=== PATIENT | female | born 1985 | race Asian ===

== ENCOUNTER 2020-04-15 10:47 | Outpatient (CLI) | payer OTHER ==
[2020-04-16 12:21] LABS: SARS-CoV-2 MS2 Positive; SARS-CoV-2 N Gene Negative; SARS-CoV-2 S Gene Negative; SARS-CoV-2 orf1ab Negative
== END 2020-04-15 10:48 | disposition home or self-care (01) ==
LOC: LABSCS 10:47
PROVIDERS: ATTEND Emergency Medicine
DX: Z01.812 Encounter for preprocedural laboratory examination (principal); Z11.59 Encounter for screening for other viral diseases
CPT/HCPCS: 87635; U0003

== ENCOUNTER 2020-04-19 19:15 | Inpatient (IN) | payer MEDICAID, OTHER, SELFPAY ==
[~2020-04-19 19:15] MED LIST: Bupivacaine 0.25% HCL 30 ML VIAL ONE
[2020-04-20 05:18] VITALS: BMI 28.0
[2020-04-20] MEDS: Lactated Ringer's 1,000 ML IV SCH ×3 (07:20→16:37)
[2020-04-20] MEDS ORDERED: Docusate 100 MG CAP PO PRN (07:35)
[2020-04-20] MEDS ORDERED: Diphenoxylate HCl/Atropine Tablet PO PRN (07:35)
[2020-04-20] MEDS ORDERED: Carboprost 250 MCG/ML AMP IM PRN (07:35)
[2020-04-20] MEDS ORDERED: Promethazine HCl 25 MG/ML VIAL IM PRN ×2 (07:35→15:08)
[2020-04-20] MEDS ORDERED: Lidocaine 1% (PF) 30 ML VIAL SC PRN (07:35)
[2020-04-20] MEDS ORDERED: Ondansetron PF 4 MG/2 ML Vial IVP PRN ×2 (07:35→15:08)
[2020-04-20] MEDS ORDERED: NS / Oxytocin 40 units/1000ml 1,000 ML IV PRN (07:35)
[2020-04-20] MEDS ORDERED: Methylergonovine 0.2 MG/ML VIAL IM PRN (07:35)
[2020-04-20] MEDS ORDERED: Misoprostol 200 MCG TAB PR PRN (07:35)
[2020-04-20] MEDS ORDERED: hydrALAZINE 20 MG/ML VIAL SLOW IVP PRN (07:35)
[2020-04-20] MEDS ORDERED: Ibuprofen 800 MG TAB PO PRN (07:35)
[2020-04-20] MEDS: Misoprostol 100 MCG TAB VAG SCH ×2 (08:00→16:36)
--- NOTE | 2020-04-20 08:11 | PDOC.FPROB ---
FMR OB H&P: HPI - History of Present Illness Chief Complaint: mIOL for AMA History of Present Illness: Ms. Conor Dhaliwal is a 35 yo at 39.1 wks by 12.3 wk sono presenting for a medical induction of labor due to advanced maternal age. She is feeling baby move this morning and is excited. She denies bleeding, LOF, vaginal discharge, dysuria. FMR OB H&P: Current - Care : 2 Para: 1001 Gestational age: 39.1 Due date: 04/26/2020 Dating Criteria: LMP consistent with 12.3 wk sono Course/Complications: anemia of , Hgb on 03/30: 10.1 - OB Labs Blood type: A RH: positive Antibody Screen: negative HIV: negative RPR: negative HepBsAg: negative Rubella: immune Quad screen: negative Gonorrhea: negative Chlamydia: negative Pap Smear: ASCUS 1 hour gtt: 2 hour gtt: 73, 90, 98 GBS: negative H&H: 11.1/32.9 Platelets: 214 Additional labs: COVID: neg FMR OB H&P: History - Past Medical History PMH: None - OB History OB History: Previous full term , no complications - Surgical History Sx History: None - Social History Social History: denies tobacco, alcohol, or drug abuse - Family History Family History: Non-contributory FMR OB H&P: Medications - Current Allergies/Adverse Reactions: Allergies Allergy/AdvReac Type Severity Reaction Status Date / Time No Known Allergies Allergy Verified 04/20/20 05:17 FMR OB H&P: ROS - Review of Systems General: denies: fever/chills Eyes: denies: vision changes ENT: denies: nasal congestion, rhinorrhea, sore throat Cardiovascular: denies: chest pain, palpitation, edema Respiratory: denies: cough, congestion, shortness of breath Gastrointestinal: denies: abdominal pain, nausea, vomiting, diarrhea, constipation Genitourinary (Female): reports: contractions. denies: incontinence, dysuria, polyuria, vaginal discharge, vaginal pain, vaginal bleeding Neurologic: denies: headache Integumentary: denies: rash FMR OB H&P: Vital Signs - Maternal Vital signs: BP 116/73, P 96, R 20, T 97.8 - Heart Tones Baseline: 140 Variability: moderate Acceleration: absent Deceleration: absent Category: category 1 [place] contractions every: 5-6 minutes FMR OB H&P: Physical Exam - Physical Exam General: NAD, awake, alert and oriented HEENT: normocephalic and atraumatic, PERRLA, EOMI Neck: FROM Heart: RRR, normal S1/S2, no murmurs/rubs/gallops, pulses present, no edema General: CTAB, no respiratory distress, good air movement, no rales/rhonchi, no wheezing, no retractions Abdomen: gravid Musculoskeletal: FROM in all four extremities Neurological: sensation to pain,touch and proprioception grossly normal - Pelvic Exam SVE: /3 @ 0737 Lo score: 3 Membranes: intact Presentation: vertex FMR OB H&P: A/P Discussion: Date/Time: 04/20/20 0809 35 yo presenting for mIOL 2/2 AMA at 39.1 wks by LMP c/w 12.3 wk sono. Medical Induction of Labor - AMA - 0737: 3 - 0800: cytotec placed baseline 140s, moderate variability, contractions ~5-6 min category 1 tracing baby vertex Anemia of - Hgb 11.1 today - Patient does not take her vitamins regularly. This H&P was discussed with Dr. Powers who agree with the above documentation and plan. Addendum - Attending - Attending Attestation Date/Time: 04/20/20 1117 I personally evaluated the patient and discussed the management with Dr. Moon. I agree with the History, Examination, Assessment and Plan documented above with any addition or exceptions noted below. IOL for AMA. unfavorable cervix. Cytotec placed. GBS neg. expectant management.
[2020-04-20 08:25] LABS: Hemoglobin 11.1 g/dL (12.0-16.0); Mean Corpuscular HGB CONC 33.8 g/dL (32.0-36.0); Mean Corpuscular Hemoglobin 29.7 pg (27.0-31.0); Mean Platelet Volume 7.5 fL (7.4-10.4); Platelet Count 214 thou/uL (130-400); RBC Distribution Width 15.4 % (11.5-14.5); Red Blood Cell (RBC) Count 3.74 mill/uL (4.20-5.40); White Blood Cell (WBC) Count 9.7 thou/uL (4.8-10.8)
[2020-04-20 09:03] LABS: HBSAg Index 0.14 S/CO (0-0.99); Hep B Surf Ag Non-Reactive S/CO (NonReactive)
[2020-04-20 09:08] LABS: Syphilis Antibody Nonreactive (Nonreactive); Syphilis Antibody Index 0.04 S/CO (<1.00 Non-Reactive)
--- NOTE | 2020-04-20 11:19 | PDOC.LDPN ---
Labor & Delivery Progress Note - Subjective Subjective: comfortable - Objective General: NAD, resting Uterine fundus: non tender Dilation: 2 Effacement: 50% Station: -3 FHT: category 1 (baseline 140s, +accelerations, 0 deccels) [place] contractions every: difficult to visualize -: Tighten toco, reasses contractions in [address] 2nd cytotec if appropriate.
[2020-04-20] MEDS ORDERED: Fentanyl 4 mcg/Bup 0.1% Cadd 100 ML ONE ×2 (13:49→21:48)
--- NOTE | 2020-04-20 14:36 | PDOC.LDPN ---
Labor & Delivery Progress Note - Subjective Subjective: comfortable (baseline 145) - Objective Vital signs reviewed and normal: yes General: NAD Uterine fundus: non tender Dilation: 5 Effacement: 50% Station: -2 FHT: category 1 [place] contractions every: 2-4 AROM: bloody fluid -: - Epidural placed due to painful contractions, pt now more comfortable - Has now received 1 cytotec total - AROM - Will assess cxn pattern and cervical change for need for pitocin Plan: Continuexpectant management.
[2020-04-20] MEDS ORDERED: Naloxone HCl 0.4 mg/ml Vial IVP PRN ×2 (15:08)
[2020-04-20] MEDS ORDERED: diphenhydrAMINE 50 MG/ML VIAL IVP PRN (15:08)
[2020-04-20] MEDS ORDERED: Lactated Ringer's 500 ML IV PRN (15:08)
[2020-04-20] MEDS ORDERED: EPHEDRINE 25 MG/5 ML SYRINGE SLOW IVP PRN (15:08)
[2020-04-20] MEDS ORDERED: Fentanyl 4 mcg/Bupivacaine 0.1% Cassette 100 ML EPIDURAL SCH (15:15)
[2020-04-20] MEDS ORDERED: Communication Order-Pharmacy FS SCH (15:15)
[2020-04-20] MEDS ORDERED: NS w/ Oxytocin 10 units 500 ML ONE (16:13)
[2020-04-20] MEDS ORDERED: NS w/ Oxytocin 10 units 500 ML IV SCH (16:30)
--- NOTE | 2020-04-20 19:39 | PDOC.OBLPN ---
FMR OB Labor PN: Subj - Interval History Hospital Day: 1 Chief Complaint: mIOL @ 39.1 wks Indentification: 35F @ 39.1 wks with AMA and anemia of , reactive Rubella FMR OB Labor PN: Obj - Maternal Vital signs: BP: 104/60 HR: 69 FMR OB Labor PN: Exam - Physical Exam General: NAD, awake, alert and oriented HEENT: normocephalic and atraumatic, EOMI, grossly normal vision, grossly normal hearing Neck: supple, FROM General: no respiratory distress Abdomen: soft, gravid Musculoskeletal: FROM in all four extremities Deviation from normal: Decreased sensation 2/2 epidural Psychiatric: normal mood and affect - Pelvic Exam Vulva: no masses, no lesions, no discharge, no blood Cervix: no masses, no lesions, no blood SVE: 6/50/-3 Membranes: AROM FMR OB Labor PN: Data - Labs Lab results: Laboratory Results - last 24 hr 04/20/20 04/20/20 04/20/20 08:15 08:15 08:15 WBC RBC Hgb Hct MCV MCH MCHC RDW Plt Count MPV Syphilis IgG/IgM Ab Nonreactive Hep Bs Antigen Non-Reactive Blood Type A POSITIVE Antibody Screen NEGATIVE 04/20/20 04/20/20 08:15 09:01 WBC 9.7 RBC 3.74 L Hgb 11.1 L Hct 32.9 L MCV 88.0 MCH 29.7 MCHC 33.8 RDW 15.4 H Plt Count 214 MPV 7.5 Syphilis IgG/IgM Ab Hep Bs Antigen Blood Type A POSITIVE Antibody Screen FMR OB Labor PN: A/P Discussion: Date/Time: 04/20/201936 mIOL @ 39.1 wks - Patient is a 35 yo F @ 39.1 wks presenting for mIOL - Risk factors: AMA, anemia of - FHT cat 1: baseline 145, good variability, several accels, no decels - Maternal BP 104/60, HR 69 - Pit at 6 - 6/50/-3 - Continue pit and recheck in 2 hrs
--- NOTE | 2020-04-20 21:09 | PDOC.OBLPN ---
FMR OB Labor PN: Subj - Interval History Hospital Day: 1 Chief Complaint: mIOL @ 39.1 wks Indentification: 35F @ 39.1 wks. Risks: AMA, anemia of FMR OB Labor PN: Obj - Maternal Vital signs: BP: 98/60 HR: 86 - Procedures AROM: clear fluid (Bloody show) FMR OB Labor PN: Exam - Pelvic Exam SVE: 6/80/0 Lo score: 11 Membranes: AROM, bloody show Presentation: cephalic FMR OB Labor PN: Data - Labs Lab results: Laboratory Results - last 24 hr 04/20/20 04/20/20 04/20/20 08:15 08:15 08:15 WBC RBC Hgb Hct MCV MCH MCHC RDW Plt Count MPV Syphilis IgG/IgM Ab Nonreactive Hep Bs Antigen Non-Reactive Blood Type A POSITIVE Antibody Screen NEGATIVE 04/20/20 04/20/20 08:15 09:01 WBC 9.7 RBC 3.74 L Hgb 11.1 L Hct 32.9 L MCV 88.0 MCH 29.7 MCHC 33.8 RDW 15.4 H Plt Count 214 MPV 7.5 Syphilis IgG/IgM Ab Hep Bs Antigen Blood Type A POSITIVE Antibody Screen FMR OB Labor PN: A/P Discussion: Date/Time: 04/20/202107 mIOL @ 39.1 wks - Patient is a 35 yo F @ 39.1 wks presenting for mIOL - Risk factors: AMA, anemia of - FHT cat 1: baseline 145, good variability, several accels. Had some early decels so she was checked a little early and Pit was discontinued - Pit discontinued 2/2 early decels and hyperstimulation - BP 98/60, HR 86 - will monitor, expect to improve since off Pit - 6/80/0 - Recheck in 1 hr Addendum - Attending - Attending Attestation Date/Time: 04/21/20 8495 I personally evaluated the patient and discussed the management with Dr. Agustina Vargas. I agree with the History, Examination, Assessment and Plan documented above with any addition or exceptions noted below.
[2020-04-20] MEDS ORDERED: NS / Oxytocin 40 units/1000ml 1,000 ML ONE (21:14)
[2020-04-20] MEDS ORDERED: Lidocaine 1% (PF) 30 ML VIAL ONE (21:14)
--- NOTE | 2020-04-21 00:07 | PDOC.OPDEL ---
OB Operative/Delivery Note Delivery Dr/Surgeon: Kalyan Youngblood Assist: Marcelo Pre-Delivery Diagnosis: elective induction Procedure/Post Delivery Dx: spontaneous vaginal delivery Anesthesia: epidural - Findings A Sex: male - 1 min: 7 - 5 min: 9 - Additional Findings/Plan Placenta delivered: spontaneous Repaired Obstetrical Laceration: 2nd degree Compilations/Other Findings: Vaginal Delivery note Delivering Physician: Kalyan Youngblood Attending: Marcelo Procedure: Spontaneous Vaginal Delivery Anesthesia: Epidural QBL: tbd ml, EBL <500 mL Pre-op Diagnosis: 1. Term intrauterine in labor 2. Hx of anemia in 3. AMA Post-op Diagnosis: 1. Term intrauterine , delivered 2. same as above Indications: A 35 y/o female presents to L&D for elective induction Delivery Note: This is 35 yo F G2 now P2002 @ 39.1 wks who delivered a viable M infant at 2337 on 04/20/2020. Following an uneventful antepartum course, a vigorous male was delivered over an intact perineum in the occipitoanterior position. Anterior Shoulder with mild dystocia and suprapubic pressure applied, less than 20 seconds and then remainder of the body delivered. Loose nuchal cord x1. The head was held down and mouth and nares were bulb suctioned. Cord clamped and cut and cord blood collected. Placenta delivered intact with a 3 vessel cord noted. Fundal massage was performed and the fundus was firm. Cytotec given. The cervix and vagina were inspected and found to have a 2nd degree laceration that was repaired in the usual fashion with good approximation and hemostasis. Right superficial labia majora lac that did not require repair. started [id number] with mom. Apgars were 7 & 9 at 1 & 5 minutes, respectively. Patient tolerated delivery well and went to after routine recovery/care. Post delivery plan: routine recovery Addendum - Attending - Attending Attestation Date/Time: 04/21/202158 I was present for the entire delivery.
--- NOTE | 2020-04-21 02:40 | PDOC.BPN ---
<Caterina Biggs - Last Filed: 04/21/20 02:32> - Brief Progress Note Responded to a page about the patient bleeding. The nurses said the patient got up to go to the bathroom and a large flush of blood came out and was still dripping even after emptying her bladder. The nurses got her back in bed and the bleeding had resolved. On PE, her laceration was not bleeding and her uterus was firm. Suprapubic pressure did not result in bleeding. Nurse states she thinks the patient looks a little more pale than before but overall looks good. QBL: 350 during delivery and 275 from this episode. Patient denied dizziness, headache, weakness. She endorses pain now that her epidural has worn off. Patient's BP and HR were normal and stable. Bleeding is likely related to delayed admin of her second bag of pit since the floor ran out of them and the patient's need to empty her bladder. Bleeding resolved with continued admin of pit. <Tomy Robertson - Last Filed: 04/21/20 22:00> Addendum - Attending - Attending Attestation Date/Time: 04/21/20 2200 Reviewed.
[2020-04-21] MEDS ORDERED: Benzocaine-Menthol 82.5 ML CAN TOP PRN (03:39)
[2020-04-21] MEDS ORDERED: Bisacodyl 10 MG SUPP PR PRN (03:39)
[2020-04-21] MEDS ORDERED: Milk Of Magnesia 30 ML UDCUP PO PRN (03:39)
[2020-04-21] MEDS: Acetaminophen 325 MG TAB PO PRN (05:02)
--- NOTE | 2020-04-21 07:43 | PDOC.PP ---
Post Progress Note Post Day #: 1 Subjective: NAEO PO intake tolerated: yes Flatus: no Ambulation: yes Vital Signs (12 hours) Temp Pulse Resp BP Pulse Ox 04/21/20 03:55 99.1 F 120 H 16 122/67 97 Weight Weight 69.4 kg - Physical Examination General: NAD Cardiovascular: no m/r/g, RRR Respiratory: clear to auscultation bilaterally, non-labored breathing Abdominal: + bowel sounds, lochia, no distention, appropriately TTP Neurological: no gross focal deficits Psychiatric: A&Ox3, normal affect Result Diagrams: 04/20/20 08:15 Additional Labs: Post Labs Blood Type A POSITIVE 04/20/20 09:01 Hep Bs Antigen Non-Reactive S/CO (NonReactive) 04/20/20 08:15 (1) (normal spontaneous vaginal delivery) Code(s): O80 - ENCOUNTER FOR FULL-TERM UNCOMPLICATED DELIVERY Status: Acute (2) Second degree perineal laceration Code(s): O70.1 - SECOND DEGREE PERINEAL LACERATION DURING DELIVERY Status: Acute (3) Anemia affecting Code(s): O99.019 - ANEMIA COMPLICATING , UNSPECIFIED TRIMESTER Status : Acute - Assessment/Plan 35 yo F G2 now P2002 @ 39.1 wks who delivered a viable M at 2337 on 2019. PPD#1 - Routine recovery. - Small 2nd degree perineal laceration, repaired with vicryl. Small R sided labial abrasion, hemostatic and not requiring repair. - QBL 625. Received 800mcg [place] and 0.2mg Methergine IM after delivery due to bleeding. - Bleeding has slowed down. - Breast and bottle feeding - pain well controlled. Anemia of - Continue PNV and iron. Dispo: Stable, potential d/c tomorrow. Addendum - Attending - Attending Attestation Date/Time: 04/21/20 1111 I personally evaluated the patient and discussed the management with Dr. Youngblood. I agree with the History, Examination, Assessment and Plan documented above with any addition or exceptions noted below. Routine care. Possible d/c tomorrow. consult for breast feeding help.
[2020-04-21] MEDS: Ferrous Sulfate 325 MG TAB PO SCH ×2 (08:47→17:05)
[2020-04-21] MEDS: Docusate Calcium (SURFAK) 240 MG CAP PO SCH ×2 (08:49→21:58)
[2020-04-21] MEDS ORDERED: Adacel (T-DAP) 0.5 ML SYRINGE IM ONE (09:00)
[2020-04-21] MEDS: Ibuprofen 800 MG TAB PO PRN ×2 (11:19→21:58)
[2020-04-21] MEDS ORDERED: Lanolin Ointment 7 GM TUBE TOP PRN (16:17)
[2020-04-21] MEDS: Misoprostol 100 MCG TAB VAG SCH ×2 (23:45→23:46)
[2020-04-22] MEDS: Ibuprofen 800 MG TAB PO PRN (04:58)
[2020-04-22 06:05] LABS: Hemoglobin 7.8 g/dL (12.0-16.0)
--- NOTE | 2020-04-22 06:38 | PDOC.PP ---
Post Progress Note Post Day #: 2 Subjective: NAEO PO intake tolerated: yes Flatus: yes Ambulation: yes Vital Signs (12 hours) Temp Pulse Resp BP Pulse Ox 04/21/20 23:53 97.8 F 81 16 91/50 L 98 04/21/20 19:42 98.3 F 91 12 96/51 L 98 Weight Weight 69.4 kg - Physical Examination General: NAD Cardiovascular: no m/r/g, RRR Respiratory: clear to auscultation bilaterally, non-labored breathing Abdominal: + bowel sounds, lochia, no distention, appropriately TTP Extremities: negative homans (B) Neurological: no gross focal deficits Psychiatric: A&Ox3, normal affect Result Diagrams: 04/22/20 05:38 Additional Labs: Post Labs Blood Type A POSITIVE 04/20/20 09:01 Hep Bs Antigen Non-Reactive S/CO (NonReactive) 04/20/20 08:15 (1) (normal spontaneous vaginal delivery) Code(s): O80 - ENCOUNTER FOR FULL-TERM UNCOMPLICATED DELIVERY Status: Acute (2) Second degree perineal laceration Code(s): O70.1 - SECOND DEGREE PERINEAL LACERATION DURING DELIVERY Status: Acute (3) Anemia affecting Code(s): O99.019 - ANEMIA COMPLICATING , UNSPECIFIED TRIMESTER Status : Acute - Assessment/Plan 35 yo F G2 now P2002 @ 39.1 wks who delivered a viable M at 2337 on 2019. PPD#1 - Routine recovery. - Small 2nd degree perineal laceration, repaired with vicryl. Small R sided labial abrasion, hemostatic and not requiring repair. - QBL 625. Received 800mcg [place] and 0.2mg Methergine IM after delivery due to bleeding. - Pain well controlled. - Probable d/c today. Anemia of - Continue PNV and iron. Dispo: Stable. Addendum - Attending - Attending Attestation Date/Time: 04/22/20 6636 I personally evaluated the patient and discussed the management with Dr. Youngblood. I agree with the History, Examination, Assessment and Plan documented above with any addition or exceptions noted below. D/C home today. Continue PO iron.
[2020-04-22] MEDS: Docusate Calcium (SURFAK) 240 MG CAP PO SCH (08:47)
[2020-04-22] MEDS: Ferrous Sulfate 325 MG TAB PO SCH (08:48)
[2020-04-22] MEDS: Acetaminophen 325 MG TAB PO PRN (08:51)
[2020-04-22 08:58] VITALS: BP 110/65; TEMP 97.6
--- NOTE | 2020-04-23 05:29 | PQF ---
Dear : Jamie Powers Date: 04/23/20 Please exercise your independent, professional judgment in responding to the clarification form. Clinical indicators are provided on the bottom of this form for your review Can you please further clarify the specificity of anemia? Please check appropriate box(es): [ x ] Acute blood loss anemia [ ] Post-op anemia related to acute blood loss [ x ] Other diagnosis please specify Anemia of [ ] Unable to determine In addition, please specify: Present on Admission (POA): [ X ] Yes [ ] No [ ] Unable to determine Physician Signature: Date/Time: For continuity of documentation, please document condition throughout progress notes and discharge summary. Thank You. To be completed by CDI/Coding staff for physician review: Present Clinical Indicators - Signs / Symptoms / Labs Results and Location in Medical Record [ x ] Anemia of H and P pg.1 [ x ] QBL: tbd ml, EBL < 500ml OB OP report pg.1 [ x ] QBL: 350 during delivery and 275 fro m this episode PN 04/21 pg.1 [ x ] Patient denied dizziness, headache and weakness PN 04/21 pg.1 [ x ] Bleeding is likely related to delayed admin of her second bag of pitocin PN 04/21 pg.1 [ x ] HGB 11.01L, 7.8L Laboratory [ x ] HCT 32.9L, 24.3L Laboratory [ x ] Anemia affecting Post PN pg.2 Present Risk Factors Results and Location in Medical Record [ x ] AMA H and P pg.1 [ x ] 2nd degree laceration OB OP report pg.1 [ x ] s/p Post PN pg.2 Present Treatments Results and Location in Medical Record [ x ] Laceration repair OB OP report pg.1 [ x ] IV Fluids MAR [ x ] H/H monitoring Laboratory [ x ] Cont PNV and [place] PN pg.1 CDS/Design Engineering Specialist Signature: Curt Bethea Phone #: ext [phone] Date: 04/23/20 This is a permanent part of the Medical Record [facility]
== END 2020-04-22 13:04 | disposition home or self-care (01) | DRG 806 ==
LOC: L&D 04-20 04:50 → 3SW 04-21 04:26
PROVIDERS: ADMIT Emergency Medicine; ATTEND Emergency Medicine
PROC: 10907ZC Drainage of Amniotic Fluid, Therapeutic from Products of Conception, Via Natural or Artificial Opening (ICD-10-PCS; principal; 2020-04-21)
PROC: 10E0XZZ Delivery of Products of Conception, External Approach (ICD-10-PCS; 2020-04-21)
PROC: 0KQM0ZZ Repair Perineum Muscle, Open Approach (ICD-10-PCS; 2020-04-21)
PROC: 3E0P7VZ Introduction of Hormone into Female Reproductive, Via Natural or Artificial Opening (ICD-10-PCS; 2020-04-21)
PROC: 3E033VJ Introduction of Other Hormone into Peripheral Vein, Percutaneous Approach (ICD-10-PCS; 2020-04-21)
DX: O66.0 Obstructed labor due to shoulder dystocia (principal); D62 Acute posthemorrhagic anemia; Z37.0 Single live birth; O99.02 Anemia complicating childbirth; D64.9 Anemia, unspecified; O76 Abnormality in fetal heart rate and rhythm complicating labor and delivery; O70.1 Second degree perineal laceration during delivery; Z3A.39 39 weeks gestation of pregnancy
CPT/HCPCS: 36415; 85014; 85018; 85027; 86780; 86850; 86900; 86901; 87340; J2001; J2210; J2590; S0020